=== PATIENT | female | born 1965 | race Caucasian/White ===

== ENCOUNTER 2021-10-19 07:50 | Outpatient (CLI) | payer OTHER | END 2021-10-19 07:51 | disposition home or self-care (01) | LOC: CSHLAB 07:50 | PROVIDERS: ATTEND Obstetrics & Gynecology | DX: Z01.812 Encounter for preprocedural laboratory examination (principal); Z20.822 Contact with and (suspected) exposure to COVID-19; R93.89 Abnormal findings on diagnostic imaging of other specified body structures | CPT/HCPCS: 85027; 86850; 86900; 86901; U0003; U0005 ==

== ENCOUNTER 2021-10-22 06:09 | Day surgery (SDC) | payer OTHER ==
[2021-10-13 13:39] VITALS: BMI 29.2
[2021-10-19 09:44] LABS: Hemoglobin 13.7 g/dL (12.0-15.5); Mean Corpuscular HGB CONC 32.9 g/dL (32.0-36.0); Mean Corpuscular Hemoglobin 30.8 pg (27.0-33.0); Mean Corpuscular Volume 93.7 fl (81.6-98.3); Mean Platelet Volume 10.6 fl (7.4-10.4); Platelet Count 269 10x3/uL (150-450); RBC Distribution Width 11.8 % (11.5-14.5); Red Blood Cell (RBC) Count 4.45 10x6/uL (3.90-5.03); White Blood Cell (WBC) Count 5.2 10x3/uL (3.5-10.5)
[2021-10-19 20:42] LABS: SARS-CoV-2 PCR by NAA Not Detected (NotDetected)
[2021-10-22] MEDS ORDERED: Lidocaine 1% MPF 2 ML VIAL ONE (06:16)
[2021-10-22] MEDS ORDERED: PROPOFOL 20 ML ONE (06:57)
[2021-10-22] MEDS ORDERED: Fentanyl 100 MCG/2 ML VIAL ONE (06:57)
[2021-10-22] MEDS ORDERED: Midazolam HCl 2 mg/2 ml Vial ONE (06:57)
[2021-10-22] MEDS ORDERED: Ondansetron PF 4 MG/2 ML Vial ONE (07:00)
[2021-10-22] MEDS ORDERED: Lidocaine 1% PF 5 ML VIAL ONE (07:00)
[2021-10-22] MEDS ORDERED: Dexamethasone 4 mg/ml Vial ONE (07:00)
[2021-10-22] MEDS ORDERED: ceFAZolin 2 GM/Dextrose 50 ML IVPB ONE (07:26)
[2021-10-22] MEDS ORDERED: Tranexamic Acid 650 MG TAB PO SCH (09:00)
== END 2021-10-22 10:00 | disposition home or self-care (01) ==
LOC: CSHSDC 06:09
PROVIDERS: ATTEND Obstetrics & Gynecology
PROC: 0UB98ZX Excision of Uterus, Via Natural or Artificial Opening Endoscopic, Diagnostic (ICD-10-PCS; principal; 2021-10-22)
DX: N84.0 Polyp of corpus uteri (principal); D25.9 Leiomyoma of uterus, unspecified; I10 Essential (primary) hypertension; E78.5 Hyperlipidemia, unspecified; Z85.3 Personal history of malignant neoplasm of breast; Z79.810 Long term (current) use of selective estrogen receptor modulators (SERMs); Z79.899 Other long term (current) drug therapy; Z20.822 Contact with and (suspected) exposure to COVID-19
CPT/HCPCS: 85027; 86850; 86900; 86901; 88305; J0690; J1100; J2250; J2405; J2704; J3010; U0003; U0005

== ENCOUNTER 2021-12-18 09:45 | Outpatient (CLI) | payer OTHER | END 2021-12-18 09:46 | disposition home or self-care (01) | LOC: CSHLAB 09:45 | PROVIDERS: ATTEND Obstetrics & Gynecology | DX: Z01.812 Encounter for preprocedural laboratory examination (principal); Z20.822 Contact with and (suspected) exposure to COVID-19; D25.9 Leiomyoma of uterus, unspecified; Z85.3 Personal history of malignant neoplasm of breast | CPT/HCPCS: 85027; 86850; 86900; 86901; U0003; U0005 ==